=== PATIENT | male | born 1970 | race Caucasian/White ===

== ENCOUNTER 2023-02-22 09:18 | Emergency (ER) | payer BC, SELFPAY ==
[2023-02-22 09:21] VITALS: BP 135/93; PULSE 96; RESP 18; TEMP 36.8; O2SAT 100; BMI 28.6
--- OUTSIDE RECORDS SUMMARY | 2023-02-22 10:13 | XMS_ITS | Clinical Summary ---
Author Name Unknown Organization [facility] Address [address] [place] [id number] Care Team Providers Care Technical Spec Name Role Phone No Ref-Primary, Physician Primary Care Provider Allergies Active Allergy Reactions Criticality Noted Date Comments Morphine Nausea and Vomiting 10/04/2009 Neomycin-Polymyxin B Gu 11/11/2008 Topical causes site swelling. Medications Medication Sig Dispensed Refills Start Date End Date Status cephALEXin (KEFLEX) 500 MG capsule Take 1 capsule (500 mg) by mouth 4 times daily for 5 days 20 capsule 0 02/13/2023 02/18/2023 Active Problems Problem Noted Date Diagnosed Date Overweight 01/09/2018 CARDIOVASCULAR SCREENING; LDL GOAL LESS THAN 160 12/14/2009 Dermatophytosis of nail 11/09/2004 Insomnia 10/12/2004 Overview: Problem list name updated by automated process. Provider to review Anxiety state 10/12/2004 Overview: Problem list name updated by automated process. Provider to review Resolved Problems Problem Noted Date Diagnosed Date Resolved Date iamJOINT PAIN-PELVIS 11/09/2005 006 Encounters Date Type Department Care Team Description 02/13/2023 3:52 PM FIRE CREW SPECIALIST - 02/13/2023 5:44 PM FIRE CREW SPECIALIST Emergency [facility] Emergency Dept [address] [place] [address] Daniel Santos PA-C Subungual hematoma of right thumb, initial encounter; Open fracture of tuft of distal phalanx of finger; Thumb laceration, right, initial encounter Discharge Disposition: Home or Self Care 02/13/2023 Travel from Last 3 Months Immunizations Name Administration Dates Next Due Influenza (IIV3) PF 12/20/2007 TDAP (Adacel,Boostrix) 02/13/2023 Family History Medical History Relation Comments Diabetes Father Hypertension Mother Relation Status Comments Father Alive Mother Alive Social History Tobacco Use Types Packs/Day Years Used Date Smoking Tobacco: Never Smokeless Tobacco: Never Alcohol Use Standard Drinks/Week Comments No 0 (1 standard drink = 0.6 oz pur e alcohol) PHQ-2 Answer Date Recorded PHQ-2 Score 0 01/09/2018 Adolescent Education Answer Date Record ed Getting School Help Needed Not on file 11/22 Sex and Gender Information Value Date Recorded Sex Assigned at Not on file Gender Identity Not on file Sexual Orientation Not on file Last Filed Vital Signs Vital Sign Reading Time Taken Comments Blood Pressure 144/100 02/13/2023 5:30 PM FIRE CREW SPECIALIST Pulse 79 02/13/2023 5:30 PM FIRE CREW SPECIALIST Temperature 36 ??C (96.8 ??F) 02/13/2023 12:21 PM FIRE CREW SPECIALIST Respiratory Rate 18 02/13/2023 5:30 PM FIRE CREW SPECIALIST Oxygen Saturation 100% 02/13/2023 5:30 PM FIRE CREW SPECIALIST Inhaled Oxygen Concentration - - Weight 92.4 kg (203 lb 9.6 oz) 01/09/2018 10:53 AM FIRE CREW SPECIALIST Height 175.3 cm (5' 9) 01/09/2018 10:53 AM FIRE CREW SPECIALIST Body Mass Index 30.07 01/09/2018 10:53 AM FIRE CREW SPECIALIST Plan of Treatment Health Maintenance Due Date Last Done Comments ADVANCE CARE PLANNING 1970 ANNUAL REVIEW OF HM ORDERS 1970 CT COLONOGRAPHY 1970 FIT 1970 FLEX SIG 1970 HEPATITIS B IMMUNIZATION (1 of 3 - 3-dose series) 1970 sDNA (Cologuard) 1970 HIV SCREENING 1985 HEPATITIS C SCREENING 01/04/1988 YEARLY PREVENTIVE VISIT 01/09/2019 01/10/20, 03/27/2014, 05/23/2009 ZOSTER IMMUNIZATION (1 of 2) 01/04/2020 COVID-19 Vaccine ( season) 2022 01/02/2021, 07/01/2020, 06/10/2020 LIPID 01/09/2023 01/09/2018 PHQ-2 (once per calendar year) 2023 01/09/2018, 01/09/2018 COLONOSCOPY 08/04/2028 08/04/2018, 08/04/2018 COLORECTAL CANCER SCREENING 08/04/2028 DTAP/TDAP/TD IMMUNIZATION (3 - Td or Tdap) 02/13/2033 02/13/2023, 10/04/2009 INFLUENZA VACCINE Completed 12/24/2022, , 12/29/2020, Additional history exists HPV IMMUNIZATION Aged Out No longer e ligible based on patient's age to complete this topic IPV IMMUNIZATION Aged Out No longer e ligible based on patient's age to complete this topic MENINGITIS IMMUNIZATION Aged Out No l onger eligible based on patient's age to complete this topic Pneumococcal Vaccine: Pediatrics (0 to 5 Years) and At-Risk Patients (6 to 64 Years) Aged Out No longer eligible based on patient's age to complete this topic RSV MONOCLONAL ANTIBODY Aged Out No l onger eligible based on patient's age to complete this topic Procedures Procedure Name Priority Date/Time Associated Diagnosis Comments XR FINGER RIGHT G/E 2 VIEWS STAT 02/13/2023 4:34 PM FIRE CREW SPECIALIST from Last 3 Months Results * XR Finger Right G/E 2 Views (02/13/2023 4:34 PM FIRE CREW SPECIALIST) Anatomical Region Laterality Modality Hand, Right Hand Right Digital Radiogr aphy 02/13/2023 4:34 PM FIRE CREW SPECIALIST Impressions 02/13/2023 4:36 PM FIRE CREW SPECIALIST IMPRESSION: Soft tissue wound of the dorsal distal aspect of the right thumb with a mildly displaced comminuted fracture of the tuft of the distal phalanx. 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 Narrative 02/13/2023 4:36 PM FIRE CREW SPECIALIST EXAM: XR FINGER RIGHT G/E 2 VIEWS LOCATION: [facility] DATE: 02/13/2023 INDICATION: Trauma, laceration w avulsion of nailbed COMPARISON: None. Procedure Note Rowdy Morin DO - 02/13/2023 EXAM: XR FINGER RIGHT G/E 2 VIEWS LOCATION: [facility] DATE: 02/13/2023 INDICATION: Trauma, laceration w avulsion of nailbed COMPARISON: None. IMPRESSION: Soft tissue wound of the dorsal distal aspect of the rightthumb with a mildly displaced comminuted fracture of the tuft of thedistal phalanx. 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 Daniel Santos PA-C [facility] DIAGNOSTI C IMAGING ORDERABLES from Last 3 Months Care Teams Technical Spec Relationship Specialty Start Date End Date No Ref-Primary, Physician PCP - General 02/13/23
--- OUTSIDE RECORDS SUMMARY | 2023-02-22 10:13 | XMS_ITS | Clinical Summary ---
Author Name Unknown Organization [facility] Address [place], [place] [address] Care Team Providers Care Cst Name Role Phone [facility] Primary Care Provider [phone] Allergies Active Allergy Reactions Criticality Noted Date Comments Morphine Nausea And Vomiting 10/04/2009 Neomycin-Polymyxin Other - Describe In Comment Field 10/04/2009 Swelling of skin Medications No known medications Active Problems No known active problems Immunizations Name Administration Dates Next Due Tdap 10/04/2009 Social History Tobacco Use Types Packs/Day Years Used Date Smoking Tobacco: Never Smokeless Tobacco: Never Alcohol Use Standard Drinks/Week Comments Not Asked 0 (1 standard drink = 0.6 oz pur e alcohol) Sex and Gender Information Value Date Recorded Sex Assigned at Not on file Gender Identity Not on file Sexual Orientation Not on file Obstetrics History Last Filed Vital Signs Vital Sign Reading Time Taken Comments Blood Pressure 109/72 03/30/2011 11:05 AM SUPERVISOR GROVE Pulse 59 03/30/2011 11:05 AM SUPERVISOR GROVE Temperature 36.9 ??C (98.4 ??F) 03/30/2011 11:[address] Respiratory Rate 18 10/04/2009 9:10 PM CDT Oxygen Saturation 98% 10/04/2009 9:10 PM CDT Inhaled Oxygen Concentration - - Weight 90.3 kg (199 lb) 03/30/2011 11:05 AM SUPERVISOR GROVE Height 177.8 cm (5' 10) 10/04/2009 12:47 PM CDT Body Mass Index 28.55 10/04/2009 12:47 PM CDT Plan of Treatment Health Maintenance Due Date Last Done Comments COVID-19 vaccine series (#1) 1970 Depression screening for age 12+ 1982 HIV for age 15-65 1985 BMI (ht and wt on same day) for age 18+ 01/04/1988 Hepatitis C screening for ag e 18-79 01/04/1988 Colonoscopy through age 75 2015 Lipids for age 45-75 2015 Tetanus booster 10/05/2019 10/04/2009 Zoster (shingles) series for age 50+ (1 of 2) 01/04/2020 Influenza for age 50-64 10/15/2022 Tdap Completed 10/04/2009 Pneumococcal series for age 6-64 Aged Out No longer eligible based on patient's age to complete this topic Advance Directives Latest Code Status on File Code Status Date Activated Date Inactivated Comments Full Code 10/04/2009 12:24 PM 10/05/2009 3:32 AM Care Teams Cst Relationship Specialty Start Date End Date [facility] [address] [place] [address] PCP - General 01/12/11
--- OUTSIDE RECORDS SUMMARY | 2023-02-22 10:13 | XMS_ITS | Encounter Summary ---
Author Name Unknown Organization [facility] Address [address] [place] [address] Care Team Providers Care Cardiac Rn Name Role Phone No Ref-Primary, Physician Primary Care Provider Encounter Details Date Type Department Care Team (Latest Contact Info) Description 02/13/2023 Travel Social History Tobacco Use Types Packs/Day Years [...] on file Sexual Orientation Not on file documented as of this encounter Plan of Treatment Not on file documented as of this encounter Visit Diagnoses Not on filedocumented in this encounter Additional Health Concerns Assessment Noted Time PHQ-9 Depression Total Score: 0 01/10/20 18 11:52 AM DIE DEVELOPER documented as of this encounter Care Teams Cardiac Rn Relationship Specialty Start Date End Date No Ref-Primary, Physician PCP - General 02/13/23 documented as of this encounter
--- OUTSIDE RECORDS SUMMARY | 2023-02-22 10:13 | XMS_ITS | Encounter Summary ---
Author Name Unknown Organization [facility] Address [address] [place] [id number] Care Team Providers Care Mental Health Aides Teacher Name Role Phone No Ref-Primary, Physician Primary Care Provider Reason for Visit * Reason Comments Laceration Encounter Details Date Type Department Care Team (Late st Contact Info) Description 02/13/2023 3:52 PM MANAGER MOUNTAIN - 02/13/2023 5:44 PM MANAGER MOUNTAIN Emergency [facility] Emergency Dept [address] [place] [address] [phone] Daniel Santos PA-C [facility] [address] [place] [id number] Subungual hematoma of right thumb, initial encounter; Open fracture of tuft of distal phalanx of finger; Thumb laceration, right, initial encounter Discharge Disposition: Home or Self Care Social History Tobacco Use Types Packs/Day Years [...] on file documented as of this encounter Last Filed Vital Signs Vital Sign Reading Time Taken Comments Blood Pressure 144/100 02/13/2023 5:30 PM MANAGER MOUNTAIN Pulse 79 02/13/2023 5:30 PM MANAGER MOUNTAIN Temperature 36 ??C (96.8 ??F) 02/13/2023 12:21 PM MANAGER MOUNTAIN Respiratory Rate 18 02/13/2023 5:30 PM MANAGER MOUNTAIN Oxygen Saturation 100% 02/13/2023 5:30 PM MANAGER MOUNTAIN Inhaled Oxygen Concentration - - Weight - - Height - - Body Mass Index - - documented in this encounter Discharge Instructions * Attachments The following attachments cannot be sent through Care Everywhere. * Finger Fracture (Central African) * Nail Avulsion ([place]) documented in this encounter Medications at Time of Discharge Medication Sig Dispensed Refills Start Date End Date cephALEXin (KEFLEX) 500 MG capsule Take 1 capsule (500 mg) by mouth 4 times daily for 5 days 20 capsule 0 02/13/2023 02/18/2023 documented as of this encounter ED Notes * Casey Michaels RN - 02/13/2023 5:00 PM CST Pt had a cut on his left thumb from a wood saw. Isolated injury, Pt is not on blood thinners. CMS intact. Thumb attached to hand. GER [facility]OUNTAIN * Kacey Mccabe - 02/13/2023 4:52 PM CST Emergency Department Garage Worker Wound Irrigation Note: 02/13/2023 4:52 PM Wound location: R Thumb Irrigation Fluid: Normal Saline Estimated Irrigation Volume (60 mL fluid per cm): 550 mL Kacey Mccabe GER [facility] * Jennifer Abel RN - 02/13/2023 12:19 PM CST Images from the original note were not included. Pt presents to the ED with complaint of laceration to right thumb with wood splitter. Pts thumbnailis completely dislodged from the bed. Cleaned and wrapped in triage. Bleeding controlled. CMS intact. Triage Assessment (Adult) Row Name 02/13/23 1218 Triage Assessment Airway WDL WDL Respiratory WDL Respiratory WDL WDL Skin Circulation/Temperature WDL Skin Circulation/Temperature WDL X right thumb laceration- bleeding controlled, cleaned and wrappedin triage Cardiac WDL Cardiac WDL WDL Peripheral/Neurovascular WDL Peripheral Neurovascular WDL WDL Cognitive/Neuro/Behavioral WDL Cognitive/Neuro/Behavioral WDL WDL [facility] * Daniel Santos PA-C - 02/13/2023 12:02 PM CST History Chief Complaint: Laceration The history is provided by the patient. Lazarus Voss is a R hand dominant 53 year old male presenting to the ED with a laceration to the L thumb. The patient sustained the injury this morning around 1130 while using a wood splitter. Lazarus's thumb nail is completely dislodged from the bed. Patient's last tetanus vaccine was in 2009. Lazarus is allergic to morphine and Neosporin. He can still feel tip of finger. Independent Historian: None - Patient Only Review of External Notes: None Medications: No current outpatient medications on file. Past Medical History: Anxiety Dermatophytosis Insomnia Overweight Foot laceration Past Surgical History: L foot I&D Physical Exam Patient Vitals for the past 24 hrs: BP Temp Temp src Pulse Resp SpO2 02/13/23 1221 (!) 143/105 96.8 ??F (36 ??C) Temporal 76 18 98 % Physical Exam General: Alert and oriented. Head: Normocephalic. External ears and nose normal. Eyes: Pupils equal and round. Normal tracking. Pulmonary/Chest: Effort and rate normal MSK: There is a horizontal split laceration to the distal phalanx of the right thumb with avulsion of the nail plate from under the proximal nail fold. 50% subungual hematoma present. SKIN: Apparent good perfusion of skin distal to laceration with cap refill less than 2 seconds. No pulsatile bleeding. No foreign bodies. NEURO: Normal strength of flexion and extension at MCP, IP joints. Normal sensation to touch BL in tip of finger. PSYCH: Normal affect Emergency Department Course Imaging: XR Finger Right G/E 2 Views Final Result IMPRESSION: Soft tissue wound of the dorsal distal aspect of the right thumb with a mildly displaced comminuted fracture of the tuft of the distal phalanx. 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 Laboratory: Labs Ordered and Resulted from Time of ED Arrival to Time of ED Departure - No data to display Procedures Laceration Repair Procedure: Laceration Repair Indication: Laceration Consent: Verbal Location: Right R first (thumb) finger Length: 3 cm Preparation: Irrigation with Sterile Saline. Anesthesia/Sedation: Bupivacaine - 0.5% Digital block Treatment/Exploration: Wound explored, no foreign bodies found Closure: The wound was closed with one layer. Skin/superficial layer was closed with 4 x 4-0 Nylon using Interrupted sutures. Dermabond was used to secure the nail to the nailbed. Nail was then trephinated with heat cautery. Patient Status: The patient tolerated the procedure well: Yes. There were no complications. Emergency Department Course & Assessments: Interventions: Medications Tdap (jlqtvdw-oxvyysjrsg-ldvtj pertussis) (ADACEL) injection 0.5 mL (has no administration in time range) acetaminophen (TYLENOL) tablet 975 mg (975 mg Oral $Given 02/13/23 1227) Independent Interpretation (X-rays, CTs, rhythm strip): I independently interpreted the finger XR, distal phalanx tuft fracture. No radiopaque foreign body. Assessments/Consultations/Discussion of Management or Tests: ED Course as of 02/13/23 1707 Sun Feb 13, 2023 1603 I obtained the history and examined the patient as noted above. 1613 I performed a digital block to the R first finger. 1649 I rechecked and updated the patient. Social Determinants of Health affecting care: None Disposition: The patient was discharged to home. Impression & Plan Medical Decision Makin-year-old male presents with thumb injury from wood splitter. Presentation consistent with open distal phalanx tuft fracture with avulsion of nail. Also underlying subungual hematoma. Anesthetized and repaired as above. Good vascular perfusion. No indication for emergent hand surgical consultation or reimplantation. No evidence of tendon injury or nerve injury. No signs of foreign body. Tetanusupdated. Wound cleaned will start on Keflex for prophylaxis. Repaired as above with sutures and nail plate resecured under nail blood trephinated to help prevent accumulation. Splinted in AlumaFoam splint. Plan will be outpatient follow-up with orthopedics. Discussed watch for signs of infection CMS compromise and return if these develop. Sutures out in 10 to 12 days or at discretion of [facility]. Diagnosis: ICD-10-CM 1. Subungual hematoma of right thumb, initial encounter S60.111A 2. Open fracture of tuft of distal phalanx of finger S62.639B 3. Thumb laceration, right, initial encounter S61.011A Discharge Medications: New Prescriptions No medications on file Scribe Disclosure: I, Thea Bradshawlund, am serving as a scribe at 4:13 PM on 02/13/2023 to document services personally performed by Daniel Santos PA-C based on my observations and the provider's statementsto me. 02/13/2023 Daniel Santos PA-C Etten, Clark Ellsworth, PA-C 02/13/23 1815 [facility]ER [facility] * Carlos Bee MD - 02/13/2023 12:02 PM CST Emergency Department Attending Supervision Note 02/13/2023 4:57 PM I evaluated this patient in conjunction with Daniel Santos PA-C, please see primary note for full details Briefly, the patient presented with laceration to right thumb sustained by a wood electrical control assembler. Patient is right-hand dominant. Denies any other injuries. On my exam, full range of motion of right thumb with laceration just proximal to nailbed with near amputation of distal tip of right thumb, subungual hematoma noted Results: XR Finger Right G/E 2 Views Final Result IMPRESSION: Soft tissue wound of the dorsal distal aspect of the right thumb with a mildly displaced comminuted fracture of the tuft of the distal phalanx. 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 Labs Ordered and Resulted from Time of ED Arrival to Time of ED Departure - No data to display MDM 53-year-old male presenting with injury to the right thumb. X-rays significant for tuft fracture ofthe distal phalanx, independent interpretation with radiology read as noted above. Laceration repaired by XAVIER with plan to have the patient follow-up with orthopedics hand surgery. Prophylactic antibiotics given. Tetanus immunization updated prior to discharge. Diagnosis ICD-10-CM 1. Subungual hematoma of right thumb, initial encounter S60.111A 2. Open fracture of tuft of distal phalanx of finger S62.639B 3. Thumb laceration, right, initial encounter S61.011A MD Rohit Sofia Christopher E, MD 02/13/23 1702 GER [facility]OUNTAIN documented in this encounter Plan of Treatment Not on file documented as of this encounter Procedures Procedure Name Priority Date/Time Associated Diagnosis Comments XR FINGER RIGHT G/E 2 VIEWS STAT 02/13/2023 4:34 PM MANAGER MOUNTAIN documented in this encounter Results * XR Finger Right G/E 2 Views (02/13/2023 4:34 PM MANAGER MOUNTAIN) Anatomical Region Laterality Modality Hand, Right Hand Right Digital Radiogr aphy 02/13/2023 4:34 PM MANAGER MOUNTAIN Impressions 02/13/2023 4:36 PM MANAGER MOUNTAIN IMPRESSION: Soft tissue wound of the dorsal distal aspect of the right thumb with a mildly displaced comminuted fracture of the tuft of the distal phalanx. 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 Narrative 02/13/2023 4:36 PM MANAGER MOUNTAIN EXAM: XR FINGER RIGHT G/E 2 VIEWS LOCATION: [facility] DATE: 02/13/2023 INDICATION: Trauma, laceration w avulsion of nailbed COMPARISON: None. Procedure Note Rowdy Morin DO - 02/13/2023 EXAM: XR FINGER RIGHT G/E 2 VIEWS LOCATION: [facility] DATE: 02/13/2023 INDICATION: Trauma, laceration w avulsion of nailbed COMPARISON: None. IMPRESSION: Soft tissue wound of the dorsal distal aspect of the rightthumb with a mildly displaced comminuted fracture of the tuft of thedistal phalanx. 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 Daniel Santos PA-C IMG DIAGNOSTI C IMAGING ORDERABLES documented in this encounter Visit Diagnoses Diagnosis Subungual hematoma of right thumb, initial encounter Open fracture of tuft of distal phalanx of finger Thumb laceration, right, initial encounter documented in this encounter Administered Medications Inactive Administered Medications - up to 3 most recent administrations Medication Order MAR Action Action Date Dose Rate Site acetaminophen (TYLENOL) tablet 975 mg 975 mg, Oral, ONCE, On 02/13/23 at 1230, For 1 dose, Maximum acetaminophen dose from all sources = 75 mg/kg/day not to exceed 4 grams/day. $Given 02/13/2023 12:27 PM MANAGER MOUNTAIN 975 mg cephALEXin (KEFLEX) capsule 500 mg STAT, 500 mg, Oral, ONCE, On 02/13/23 at 1710, For 1 dose, Indications: Skin and Soft Tissue Infection $Given 02/13/2023 5:28 PM MANAGER MOUNTAIN 500 mg documented in this encounter Active and Recently Administered Medications Times are shown in MANAGER MOUNTAIN. Scheduled Medication Order 02/11/2023 02/12/2023 02/13/2023 acetaminophen (TYLENOL) tablet 975 mg (COMPLETED) 975 mg, Oral, ONCE, On 02/13/23 at 1230, For 1 dose, Maximum acetaminophen dose from all sources = 75 mg/kg/day not to exceed 4 grams/day. 1227 ($Given - Provi michael: Jennifer Abel RN) cephALEXin (KEFLEX) capsule 500 mg (COMPLETED) STAT, 500 mg, Oral, ONCE, On 02/13/23 at 1710, For 1 dose, Indications: Skin and Soft Tissue Infection 1728 ($Given - Provi michael: Casey Michaels RN) documented in this encounter Additional Health Concerns Assessment Noted Time PHQ-9 Depression Total Score: 0 01/10/20 18 11:52 AM MANAGER MOUNTAIN documented as of this encounter Care Teams Mental Health Aides Teacher Relationship Specialty Start Date End Date No Ref-Primary, Physician PCP - General 02/13/23 documented as of this encounter
--- OUTSIDE RECORDS SUMMARY | 2023-02-22 10:13 | XMS_ITS | Referral Summary ---
Author Name Unknown Organization [facility] Address [address] [place] [id number] Care Team Providers Care Childcare Aide Name Role Phone No Ref-Primary, Physician Primary Care Provider Encounters Date Type Department Care Team Description 02/13/2023 Travel 02/13/2023 3:52 PM CORRECTION OFFICER SUPERVISOR - 02/13/2023 5:44 PM CORRECTION OFFICER SUPERVISOR Emergency [facility] Emergency Dept [address] [place] [address] Daniel Santos PA-C Subungual hematoma of right thumb, initial encounter; Open fracture of tuft of distal phalanx of finger; Thumb laceration, right, initial encounter Discharge Disposition: Home or Self Care from Last 3 Months Allergies Active Allergy Reactions Criticality Noted Date [...] Date Resolved Date iamJOINT PAIN-PELVIS 11/09/2005 006 Immunizations Name Administration Dates Next Due Influenza (IIV3) PF 12/20/2007 TDAP (Adacel,Boostrix) 02/13/2023 Social History Tobacco Use Types Packs/Day Years [...] Comments Blood Pressure 144/100 02/13/2023 5:30 PM CORRECTION OFFICER SUPERVISOR Pulse 79 02/13/2023 5:30 PM CORRECTION OFFICER SUPERVISOR Temperature 36 ??C (96.8 ??F) 02/13/2023 12:21 PM [employer]RECTION OFFICER SUPERVISOR Respiratory Rate 18 02/13/2023 5:30 PM CORRECTION OFFICER SUPERVISOR Oxygen Saturation 100% 02/13/2023 5:30 PM CORRECTION OFFICER SUPERVISOR Inhaled Oxygen Concentration - - Weight 92.4 kg (203 lb 9.6 oz) 01/09/2018 10:53 AM CORRECTION OFFICER SUPERVISOR Height 175.3 cm (5' 9) 01/09/2018 10:53 AM CORRECTION OFFICER SUPERVISOR Body Mass Index 30.07 01/09/2018 10:53 AM CORRECTION OFFICER SUPERVISOR Plan of Treatment Not on file Procedures Procedure Name Priority Date/Time Associated Diagnosis Comments XR FINGER RIGHT G/E 2 VIEWS STAT 02/13/2023 4:34 PM CORRECTION OFFICER SUPERVISOR from Last 3 Months Results * XR Finger Right G/E 2 Views (02/13/2023 4:34 PM CORRECTION OFFICER SUPERVISOR) Anatomical Region Laterality Modality Hand, Right Hand Right Digital Radiogr aphy 02/13/2023 4:34 PM CORRECTION OFFICER SUPERVISOR Impressions 02/13/2023 4:36 PM CORRECTION OFFICER SUPERVISOR IMPRESSION: Soft tissue wound of the dorsal distal aspect of the right thumb with a mildly displaced comminuted fracture of the tuft of the distal phalanx. 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 Narrative 02/13/2023 4:36 PM CORRECTION OFFICER SUPERVISOR EXAM: XR FINGER RIGHT G/E 2 VIEWS LOCATION: [facility] DATE: 02/13/2023 INDICATION: Trauma, laceration w avulsion of nailbed COMPARISON: None. Procedure Note Rowdy Morin DO - 02/13/2023 EXAM: XR FINGER RIGHT G/E 2 VIEWS LOCATION: [facility] DATE: 02/13/2023 INDICATION: Trauma, laceration w avulsion of nailbed COMPARISON: None. IMPRESSION: Soft tissue wound of the dorsal distal aspect of the rightthumb with a mildly displaced comminuted fracture of the tuft of thedistal phalanx. 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 Daniel Santos PA-C [facility] ORDERABLES from Last 3 Months Care Teams Childcare Aide Relationship Specialty Start Date End Date No Ref-Primary, Physician PCP - General 02/13/23
--- NOTE | 2023-02-22 10:28 | ED.NURSE ---
Wound cleaned. Placed bacitracin, vasaline guaze, kerlix, splint and coban on thumb. Discharge instructions reviewed and understood by patient.
--- NOTE | 2023-02-22 11:30 | ED_ITS ---
HPI - General Adult General Date Seen: 02/22/23 Chief complaint: Laceration/Wound Stated complaint: R thumb stitching possibly infected Time Seen by Provider: 02/22/23 09:40 Source: patient Mode of arrival: ambulatory Limitations: no limitations History of Present Illness HPI narrative: Patient is a 53-year-old male here for evaluation of a wound on his right thumb. He had a laceration which was repaired seemingly elsewhere is I do not see any records, on March 16. He says that they told him not to get it wet at all so he and his have not been sure how to clean it, they have been using a Q- tip to try and just swab at the area where the stitches are. He says an x-ray was done and he was told he had a fracture and has a splint he has been wearing as well. Scheduled to get the stitches out in 2 days, but became concerned about the appearance of the sutured area today. He denies any problems with redness, swelling, pain, just thought it looked a little weird. They did trephinated the nail which was avulsed in the more proximal half, remains attached the distal half. Related Data Allergies Allergy/AdvReac Type Severity Reaction Status Date / Time bacitracin Allergy Unknown Unknown Verified 02/21/23 13:28 [From Neosporin ([id number])] morphine Allergy Unknown Unknown Verified 02/21/23 13:28 neomycin Allergy Unknown Unknown Verified 02/21/23 13:28 [From Neosporin ([id number])] polymyxin B Allergy Unknown Unknown Verified 02/21/23 13:28 [From Neosporin ([id number])] [facility] Medical History (Updated 02/22/23 @ 10:07 by Araseli Thomas MD) Insomnia ?G47.00 - Insomnia, unspecified (ICD-10) Anxiety ?F41.9 - Anxiety disorder, unspecified (ICD-10) Surgical History (Updated 02/21/23 @ 13:34 by Zuly Olmedo) History of incision and drainage ?Z98.890 - Other specified postprocedural states (ICD-10) Exam Narrative: Exam Narrative: Vital signs reviewed In general, alert, well-appearing male. Extremities: Examination of the right thumb shows 2 sutures on either side of the nail in the skin. The entire nail base is avulsed above the cuticle, and the nail is tightly adhered to the nail bed more distally. There is no erythema, drainage, swelling or tenderness. Const: Vital Signs, click to edit/add: Vital Signs - 24 hr 02/22/23 09:21 Temperature 98.3 F Pulse Rate [Pulse Oximeter] 96 Respiratory Rate 18 Blood Pressure [Le ft Upper Arm] 135/93 H Pulse Oximetry 100 Oxygen Delivery Me thod Room Air Documenting provider has reviewed patient's vital signs: yes Course Course ED Course: Reviewed with him I do not see anything that suggest infection. I cleaned the whole area up with some saline, discussed with him and is perfectly fine to get this wet just would ask that they not leave it soaking in moisture. Discussed options with the nail, which is most certainly going to fall off at some point. I can not tell whether he has new nail growing from under the eponychium yet, but reviewed that most of the time the nail will grow back in. Also discussed that sometimes the nail does not grow back depending on damage to the nail bed. I think that we can safely leave the current nail as is, I think over time it will loosen and fall off, at a minimum as the new nail grows in. Discussed that the nail could be removed if he would prefer to just be done with it but he would rather hold off. I do not have the x-rays that were done, cannot tell him exactly with the fracture look like but would recommend that he leave the splint on for around 4 weeks and then probably can remove assuming it is no longer painful. Recommend follow-up in 2 days for suture removal, 1 side looks like it will be ready the other may need a couple more days and so I recommended that he have them look closely at that before removing the stitches. Vital Signs Vital signs: Initial Vital Signs Temperature 98.3 F 02/22/23 09:21 Temperature Source Temporal Artery Scan 02/22/23 09:21 Pulse Rate 96 02/22/23 09:21 Respiratory Rate 18 02/22/23 09:21 Blood Pressure 135/93 H 02/22/23 09:21 Blood Pressure Mean 107 H 02/22/23 09:21 Pulse Oximetry 100 02/22/23 09:21 Oxygen Delivery Method Room Air 02/22/23 09:21 Vital Signs Temperature 98.3 F 02/22/23 09:21 Pulse Rate 96 02/22/23 09:21 Respiratory Rate 18 02/22/23 09:21 Blood Pressure 135/93 H 02/22/23 09:21 Pulse Oximetry 100 02/22/23 09:21 Oxygen Delivery Method Room Air 02/22/23 09:21 Temperature 98.3 F 02/22/23 09:21 Pulse Rate 96 02/22/23 09:21 Respiratory Rate 18 02/22/23 09:21 Blood Pressure 135/93 H 02/22/23 09:21 Pulse Oximetry 100 02/22/23 09:21 Oxygen Delivery Method Room Air 02/22/23 09:21 Discharge Plan Discharge Clinical Impression: Encounter for wound re-check Patient Disposition: Home, Self-Care Condition: Stable Instructions: Laceration (DC) Additional Instructions: I do not appear to have access to any x-rays you might have had at the time of this laceration, so I am not able to comment exactly on how long to wear the splint, but I would say that 3-4 weeks is likely adequate assuming pain is improved. Wound today does not look infected. Nail is going to fall off eventually as discussed, you may want to keep bandage over that 1 and to keep it from catching and possibly tearing the nail bed. Nail will most likely grow b ack though as discussed sometimes this is not the case. Suture removal in 2 days is likely reasonable, but they should check the 1 side before taking the sutures out to make sure that it does not need a couple more days. Follow Up/Referrals: Provider,Not a Local [Primary Care Provider] - Stand Alone [facility]
== END 2023-02-22 10:29 | disposition home or self-care (01) ==
LOC: ED 10:07
PROVIDERS: Emergency Provider Emergency Medicine
DX: S61.111A Laceration without foreign body of right thumb with damage to nail, initial encounter (principal)
CPT/HCPCS: 29130; 99283